=== PATIENT | female | born 1985 | race Caucasian/White ===

== ENCOUNTER 2016-07-07 20:32 | Emergency (ER) | payer BC ==
[2016-07-07] MEDS ORDERED: KETOROLAC 30 MG/ML VIAL IVP ONE (20:59)
[2016-07-07] MEDS ORDERED: DIAZEPAM 5 MG/1 ML TUBX IVP ONE (20:59)
[2016-07-07] MEDS ORDERED: PREDNISONE 20 MG TAB PO ONE (21:00)
[2016-07-07] MEDS ORDERED: 0.9 % SODIUM CHLORIDE 1000ML 1,000 ML IV SCH (21:00)
--- NOTE | 2016-07-07 21:04 | Emergency Department Record ---
History of Present Illness - General Chief complaint: Flu Like Symptoms Stated complaint: FLU LIKE SYMPTOMS Time Seen by Provider: 07/07/16 20:59 Source: Patient Mode of Arrival: Ambulatory Limitations: No limitations - History of Present Illness Initial comments: 30 yo female presents to the ED with a CC of diffuse body aches, intermittent fever/headaches, and a diffuse erythematous rash to the UEs, chest, and back. Patient denies headache currently, and denies nausea, vomiting, abdominal pain, urinary symptoms, or change in bowel habits. Patient denies health problems at her baseline. Patient underwent numerous infectious tests at [facility] 1 week ago, negative for influenza, strep, and mono at that time. Onset/Timin -: Week(s) Location: Generalized Severity scale (1-10): 4 Quality: Aching Improves with: None Worsens with: None Context: Recent illness Associated Symptoms: Denies other symptoms - Ketan Coma Scale Eye Response: (4) Open spontaneously Motor Response: (6) Obeys commands Verbal Response: (5) Oriented Ketan Total: 15 - Related Data Home Medications Medication Instructions Recorded Confirmed Last Taken Drospir/Eth Estra/Levomefol Ca 1 each PO DAILY 07/07/16 07/07/16 Unknown [Beyaz 28 Tablet] Previous Rx's Medication Instructions Recorded Diazepam [Valium] 5 mg PO Q8H PRN #15 tab 07/07/16 Ibuprofen 600 mg PO Q6H #20 tablet 07/07/16 Prednisone [Prednisone 20Mg] 20 mg PO TID #12 tab 07/07/16 Allergies Allergy/AdvReac Type Severity Reaction Status Date / Time azithromycin Allergy HIVES Verified 07/07/16 20:42 [From Zithromax Z-Jairo] Travel Screening - Travel/Exposure Within Last 30 Days Have you traveled within the last 30 days?: No - Travel Symptoms Symptom Screening: None Review of Systems Constitutional: Reports: Fever, Malaise. Denies: Chills, Night sweats Eyes: Denies: Eye discharge, Eye pain ENT: Denies: Congestion, Epistaxis Respiratory: Denies: Cough, Dyspnea Cardiovascular: Denies: Chest pain, Dyspnea on exertion Endocrine: Denies: Fatigue, Heat or cold intolerance Gastrointestinal: Denies: Abdominal pain, Nausea, Vomiting Genitourinary: Denies: Dysuria, Frequency Musculoskeletal: Reports: Back pain, Myalgia. Denies: Arthralgia, Gout, Joint swelling Skin: Denies: Bruising, Change in color, Change in hair/nails Neurological: Reports: Headache. Denies: Abnormal gait, Confusion, Seizure Psychiatric: Denies: Anxiety Hematological/Lymphatic: Denies: Anemia, Blood Clots Past Medical History - SOCIAL HISTORY Smoking Status: Current every day smoker - RESPIRATORY Hx Respiratory Disorders: No - CARDIOVASCULAR Hx Cardio Disorders: No - NEURO Hx Neuro Disorders: No - GI Hx GI Disorders: No - Hx Genitourinary Disorders: Yes Hx UTI: Yes (previously frequent) - ENDOCRINE Hx Endocrine Disorders: No - MUSCULOSKELETAL Hx Musculoskeletal Disorders: No - PSYCH Hx Psych Problems: No - HEMATOLOGY/ONCOLOGY Hx Hematology/Oncology Disorders: No Family Medical History Any Significant Family History?: Yes Family Hx Comment (NOT TO BE USED IN PLACE OF ITEMS BELOW): dad w/thyroid issues Hx Cancer: Grandparents Hx HTN: Father, Mother Physical Exam - General General Appearance: Alert, Oriented x3, Cooperative, No acute distress, Other ( patient is smiling, well apeparing, moving her head and neck in all idrections spontaneously) Limitations: No limitations - Head Head exam: Atraumatic, Normocephalic, Normal inspection Head exam detail: negative: Abrasion, Contusion, Nguyen's sign, General tenderness, Hematoma, Laceration - Eye Eye exam: Normal appearance. negative: Conjunctival injection, Periorbital swelling, Periorbital tenderness, Scleral icterus - ENT Ear exam: negative: Auricular hematoma, Auricular trauma Nasal Exam: negative: Active bleeding, Discharge, Dried blood, Foreign body Mouth exam: negative: Drooling, Laceration, Muffled voice, Tongue elevation - Neck Neck exam: Normal inspection. negative: Meningismus, Tenderness - Respiratory Respiratory exam: Normal lung sounds bilaterally. negative: Rales, Respiratory distress, Rhonchi - Cardiovascular Cardiovascular Exam: Normal rhythm, Normal heart sounds, Tachycardia - GI/Abdominal GI/Abdominal exam: Soft. negative: Rebound, Rigid, Tenderness - Rectal Rectal exam: Deferred - exam: Deferred - Extremities Extremities exam: Normal inspection. negative: Calf tenderness, Pedal edema, Tenderness - Back Back exam: Denies: CVA tenderness (R), CVA tenderness (L) - Neurological Neurological exam: Alert, Normal gait, Oriented X3 - Psychiatric Psychiatric exam: Normal affect, Normal mood - Skin Skin exam: Normal color. negative: Abrasion Type of lesion: negative: abrasion Course Vital Signs 07/07/16 20:43 Temperature 98.5 F Pulse Rate 118 H Respiratory 18 Rate Blood Pressure 140/95 Pulse Ox 100 - Reevaluation(s) Reevaluation #1: 07/07/16 22:09 Labs reviewed and are grossly unremarkable for an acute process. Reevaluation #2: 07/07/16 22:20 Patient reassessed and updated on all results, reports that her body aches are much improved, rash is mildly improved following prednisone. Patient has no meningeal signs on examination, and denies headache at this time. I did discuss with the patient performing an LP, however in the absence of any headache or meningeal signs, would not recommend the procedure to the patient as she is very low risk. Patient's labs are consistent with likely viral process , and the patient was instructed to continue symptomatic care for her symptoms but to follow-up with her PCP in 3-5 days to ensure that her symptoms are improving. Patient appears stable for discharge at this time. 07/07/16 23:26 Medical Decision Making - Lab Data Result diagrams: 07/07/16 21:25 07/07/16 21:25 Disposition Disposition: Discharge Clinical Impression: Viral syndrome Disposition: Home, Self-Care Condition: (2) Stable Instructions: Viral Syndrome (ED) Additional Instructions: Return to ED if your symptoms worsen or if you have any concerns. Valium, prednisone, and ibuprofen as directed. Follow-up with your family doctor in 3-5 days as directed. Prescriptions: Ibuprofen 600 mg PO Q6H #20 tablet Prednisone [Prednisone 20Mg] 20 mg PO TID #12 tab Diazepam [Valium] 5 mg PO Q8H PRN #15 tab PRN Reason: Pain - Moderate (5-7) Forms: Patient Portal Access Time of Disposition: 22:25
[2016-07-07 21:41] LABS: HEMATOCRIT 38.5 % (35.0-47.0); HEMOGLOBIN 13.2 gm/dl (11.6-16.0); MEAN CELL VOLUME 95.5 fl (81-97); MEAN CORPUSCULAR HEMOGLOBIN 32.8 pg (27-33); MEAN CORPUSCULAR HGB CONC 34.3 g/dl (32-36); MEAN PLATELET VOLUME 9.9 fl (7.4-10.4); PLATELET COUNT 234 K/uL (130-400); RED BLOOD COUNT 4.03 M/uL (3.80-5.40); RED CELL DISTRIBUTION WIDTH 11.4 % (11.5-14.5); WHITE BLOOD COUNT W/O DIFF 5.8 K/uL (4.2-12.2)
[2016-07-07 21:53] LABS: ALB/GLOB RATIO 1.6 (1.1-1.8); ALBUMIN 4.3 gm/dL (3.5-5.0); ALKALINE PHOSPHATASE 93 U/L (38-126); ALT/SGPT 93 U/L (9-52); ANION GAP 14.3 (7-16); AST/SGOT 53 U/L (14-36); BILIRUBIN,TOTAL 0.31 mg/dL (0.2-1.3); BLOOD UREA NITROGEN 11 mg/dL (7-17); CARBON DIOXIDE 23.7 mmol/L (22-30); CREATININE 0.7 mg/dL (0.52-1.04); EST GLOMERULAR FILTRATION RATE > 60 ml/min; GLUCOSE,RANDOM 98 mg/dL (70-110)
== END 2016-07-07 22:51 | disposition home or self-care (01) ==
LOC: ER 20:32
DX: B34.9 Viral infection, unspecified (principal); R21 Rash and other nonspecific skin eruption; R52 Pain, unspecified
CPT/HCPCS: 99284 ×2; 96374; 96375; 80053; 85027; J1885; J7512; J3360; J7030